=== PATIENT | female | born 1975 | race African-American/Black ===

== ENCOUNTER 2018-06-23 08:17 | Emergency (ER) | payer MEDICARE, MEDICAID ==
[~2018-06-23] VITALS: Ht 172.7 cm; Wt 83.0 kg
[2018-06-23 08:35] VITALS: BP 127/82
--- NOTE | 2018-06-23 08:42 | NUR ---
PT BIB SELF, C/O FEELING HOMICIDAL X 1 DAY REQUESTING PSYCH EVAL , HOMELESS DENIES SUICIDAL - H/O SCHIZO AFFECTIVE ADMITES USING METH X 3 DAYS AGO. VERBALLY RESPONSIVE AND ABLE TO MAKE NEEDS KNOWN. ON ROOM AIR, BREATHING EVENLY AND UNLABORED. DENIES ANY PAIN AT THIS TIME. DR. CORTES AT BEDSIDE FOR EVAL. WILL CONTINUE TO MONITOR ACCORDINGLY.
--- NOTE | 2018-06-23 08:46 | NUR ---
SEEND AND EXAMINED BY DR. CORTES.
--- NOTE | 2018-06-23 08:55 | NUR ---
LABS DRAWNED AND URINE SPECIMEN COLLECTED AND SENT TO LAB.
[2018-06-23 09:03] LABS: BASOPHILS # (AUTO) 0.1 /CMM (0.0-0.2); BASOPHILS % (AUTO) 0.5 % (0.0-2.0); EOSINOPHILS % (AUTO) 0.8 % (0.0-6.0); HEMATOCRIT 37 % (33-45); HEMOGLOBIN 12.2 g/dL (11.5-14.8); LYMPHOCYTES # (AUTO) 2.2 /CMM (0.8-4.8); LYMPHOCYTES % (AUTO) 15.7 % (20.0-44.0); MEAN CORPUSCULAR HGB CONC 33 g/dl (31.0-36.0); MEAN CORPUSCULAR VOLUME 85 fL (82-100); MONOCYTES # (AUTO) 1.2 /CMM (0.1-1.30); MONOCYTES % (AUTO) 8.4 % (2.0-12.0); NEUTROPHILS # (AUTO) 10.6 /CMM (1.8-8.9); NEUTROPHILS % (AUTO) 74.6 % (43.0-81.0); PLATELET COUNT (AUTO) 245 /CMM (150-450); RED BLOOD CELL COUNT(AUTO) 4.35 MIL/uL (4.0-5.2); WHITE BLOOD COUNT (AUTO) 14.1 K/uL (4.3-11.0)
[2018-06-23 09:06] LABS: APPEARANCE,URINE CLOUDY (CLEAR); BILIRUBIN,URINE 1+ (NEGATIVE); BLOOD, URINE 3+ Ery/uL (NEGATIVE); COLOR,URINE YELLOW (YELLOW); KETONES,URINE 3+ (NEGATIVE); LEUKOCYTE ESTERASE ,URINE NEGATIVE (NEGATIVE); NITRITE, URINE NEGATIVE (NEGATIVE); PH,URINE 5.5 (5.0-8.0); PROTEIN,URINE TRACE mg/dl (NEGATIVE); UGLUCOSE NEGATIVE (NEGATIVE); UROBILINOGEN,URINE 0.2 EU/dL (0.2)
[2018-06-23 09:11] LABS: BACTERIA,URINE 1+ /HPF (None Seen); CALCIUM, SERUM 8.5 mg/dL (8.5-10.1); CARBON DIOXIDE 21 mmol/L (21-32); CHLORIDE 105 mmol/L (98-107); CREATININE 0.9 mg/dL (0.6-1.3); GLUCOSE 92 mg/dL (74-106); POTASSIUM 3.6 mmol/L (3.5-5.1); SODIUM SERUM 140 mmol/L (136-145); UREA NITROGEN, BLOOD 24 mg/dL (7-18); WBC,URINE 0-2 /HPF (0-3)
[2018-06-23 09:12] LABS: CALCIUM OXALATE CRYSTALS,UR Many /HPF (None Seen)
[2018-06-23 09:17] LABS: ACETAMINOPHEN 0 ug/ml (10-30); ALANINE AMINOTRANSFERASE 30 U/L (12-78); ALBUMIN 4.1 g/dL (3.4-5.0); ALCOHOL, BLOOD < 3 mg/dL (0-0); ALKALINE PHOSPHATASE 86 U/L (46-116); ASPARTATE AMINOTRANSFERASE 39 U/L (15-37); BILIRUBIN,DIRECT 0.2 mg/dL (0.0-0.2); BILIRUBIN,TOTAL 0.8 mg/dL (0.2-1.0); SALICYLATE 0.3 mg/dL (2.8-20.0); TOTAL PROTEIN, SERUM 7.5 g/dL (6.4-8.2)
--- NOTE | 2018-06-23 09:33 | NUR ---
APPLICATIONS ENGINEER MANUFACTURING AT BEDSIDE FOR EVAL.
--- NOTE | 2018-06-23 09:51 | NUR ---
Mehran gamez in EDM - 06/23/18 at 0955 by ROGER PT BECOME UPSET AFTER TALKING TO PLANNING RN, THEN WALKOUT IN THE ER. DR. CORTES AWARE.
--- NOTE | 2018-06-23 09:55 | NUR ---
PT IS MEDICALLY CLEARED BY ELIAS BUSTAMANTE AND DISCUSSING POSSIBLE FACILITY PLACEMENT, PT BECAME IRATE AND ELOPE. DR CORTES AWARE.
== END 2018-06-23 10:07 | disposition left against medical advice (07) ==
LOC: ER 08:17
DX: F29 Unspecified psychosis not due to a substance or known physiological condition (principal); F15.10 Other stimulant abuse, uncomplicated; F25.9 Schizoaffective disorder, unspecified
CPT/HCPCS: 36415; 80048-TC; 80076-TC; 80305; 81000-TC; 85025-TC; G0480

== ENCOUNTER 2021-05-04 18:42 | Inpatient (IN) | payer MEDICAID, MEDICARE, OTHER ==
[~2021-05-04] VITALS: Ht 162.6 cm; Wt 93.0 kg
--- NOTE | 2021-05-04 18:50 | NUR ---
PT BIB RA881 FOR DIZZINESS S/P TAKING 20 PILLS OF WELBUTRIN XL 300MG 3 HRS AGO. ADMITS FEELING NAUSEA BEFORE. AAOX4, BREATHING EVEN AND UNLABORED. PT ASSISTED TO BED. SEIZURE PRECAUTIONS IN PLACE.
[2021-05-04] MEDS ORDERED: ACTIVATED CHARCOAL 25 GM/120 ML TUBE PO ONE (19:00)
--- NOTE | 2021-05-04 19:01 | NUR ---
COVID SAMPLE OBTAINED AND SENT TO LAB
--- NOTE | 2021-05-04 19:03 | NUR ---
MEMBERSHIP SALES REPRESENTATIVE AT BEDSIDE
--- NOTE | 2021-05-04 19:09 | NUR ---
LAB AT BEDSIDE
--- NOTE | 2021-05-04 19:17 | NUR ---
PT ASSISTED TO BEDPAN
[2021-05-04 19:21] LABS: BASOPHILS # (AUTO) 0.2 K/uL (0.0-0.2); BASOPHILS % (AUTO) 1.5 % (0.0-2.0); EOSINOPHILS % (AUTO) 0.1 % (0.0-6.0); HEMATOCRIT 34 % (33-45); HEMOGLOBIN 11.2 g/dL (11.5-14.8); LYMPHOCYTES # (AUTO) 0.9 K/uL (0.8-4.8); LYMPHOCYTES % (AUTO) 6.4 % (20.0-44.0); MEAN CORPUSCULAR HGB CONC 33 g/dl (31.0-36.0); MEAN CORPUSCULAR VOLUME 83 fL (82-100); MONOCYTES # (AUTO) 0.6 K/uL (0.1-1.30); NEUTROPHILS # (AUTO) 12.5 K/uL (1.8-8.9); PLATELET COUNT (AUTO) 322 K/uL (150-450); RED BLOOD CELL COUNT(AUTO) 4.12 MIL/uL (4.0-5.2); WHITE BLOOD COUNT (AUTO) 14.2 K/uL (4.3-11.0)
[2021-05-04] MEDS ORDERED: ACTIVATED CHARCOAL 25 GM/120 ML TUBE ONE (19:25)
--- NOTE | 2021-05-04 19:32 | NUR ---
RECIEVED REPORT FOR SHAHZAD. PT ON STORE KEEPER W SEIZURE PRECAUTIONS IN PLACE. DENIES ANY SYMPOMS OR PAIN AT THIS TIME AND BREATHING IS EVEN AND UNLABORED. ALL V/S STABLE AT THIS TIME. WILL CONTINUE TO MONITOR.
[2021-05-04 19:36] LABS: ALANINE AMINOTRANSFERASE 29 U/L (12-78); ALBUMIN 3.9 g/dL (3.4-5.0); ALCOHOL, BLOOD < 3 mg/dL (0-0); ALKALINE PHOSPHATASE 79 U/L (46-116); ASPARTATE AMINOTRANSFERASE 25 U/L (15-37); BILIRUBIN,DIRECT 0.1 mg/dL (0.0-0.2); BILIRUBIN,TOTAL 0.3 mg/dL (0.2-1.0); CALCIUM, SERUM 8.9 mg/dL (8.5-10.1); CARBON DIOXIDE 24 mmol/L (21-32); CHLORIDE 105 mmol/L (98-107); CREATININE 0.8 mg/dL (0.6-1.3); GLUCOSE 114 mg/dL (74-106); POTASSIUM 3.5 mmol/L (3.5-5.1); SODIUM SERUM 141 mmol/L (136-145); TOTAL PROTEIN, SERUM 7.1 g/dL (6.4-8.2); UREA NITROGEN, BLOOD 23 mg/dL (7-18)
[2021-05-04 19:38] LABS: ACETAMINOPHEN < 2 ug/ml (10-30)
[2021-05-04] MEDS ORDERED: LORAZEPAM INJ 2 MG/ML VIAL ONE (20:06)
[2021-05-04] MEDS ORDERED: LORAZEPAM INJ 2 MG/ML VIAL IM ONE (20:30)
[2021-05-04 22:43] LABS: BILIRUBIN,URINE Negative (NEGATIVE); COLOR,URINE YELLOW (YELLOW); LEUKOCYTE ESTERASE ,URINE Negative (NEGATIVE); NITRITE, URINE Negative (NEGATIVE); PROTEIN,URINE Negative (NEGATIVE); UGLUCOSE 500 MG/DL mg/dL (NEGATIVE)
[2021-05-04 22:47] LABS: BACTERIA,URINE Rare /HPF (None Seen); RBC,URINE NONE SEEN /HPF (0-2); SQUAMOUS EPITHELIAL CELL,UR Few /HPF (None Seen); WBC,URINE NONE SEEN /HPF (0-3)
--- NOTE | 2021-05-05 01:27 | NUR ---
PT SLEEPING COMOFORTABLY EASILY AROUSABLE BREATHING EVEN AND UNLABORED. PT ON COOK FRUIT WITH SEIZURE PRECAUTIONS IN PLACE V/S STABLE AT THIS TIME. WILL CONTINUE TO MONITOR.
[2021-05-05] MEDS ORDERED: LORAZEPAM INJ 2 MG/ML VIAL ONE ×2 (05:55→11:30)
[2021-05-05] MEDS ORDERED: LORAZEPAM INJ 2 MG/ML VIAL IV ONE ×3 (06:00→17:30)
--- NOTE | 2021-05-05 07:30 | NUR ---
PT SLEEPING COMFORTABLY IN BED, EASILY AROUSABLE, CONNECTED TO MONITOR
--- NOTE | 2021-05-05 08:00 | NUR ---
THE PATIENT IS RECEIVED IN ER BED #11. EASILY RESPONSIVE TO VERBAL STIMULI. IN ROOM AIR RESPIRATION REGULAR AND UNLABORED. THE PATIENT IS IN NO APPARENT DISTRESS. WILL CONTINUE TO MONITOR THE PATIENT.
--- NOTE | 2021-05-05 10:32 | NUR ---
call from rajinder alexis,house sup, unable to give in-patient bed until a 1:1 sitter is available
[2021-05-05 12:56] LABS: BASOPHILS % (AUTO) 0.3 % (0.0-2.0); EOSINOPHILS % (AUTO) 0.1 % (0.0-6.0); HEMATOCRIT 33 % (33-45); HEMOGLOBIN 10.9 g/dL (11.5-14.8); LYMPHOCYTES # (AUTO) 1.2 K/uL (0.8-4.8); LYMPHOCYTES % (AUTO) 10.1 % (20.0-44.0); MEAN CORPUSCULAR HGB CONC 33 g/dl (31.0-36.0); MEAN CORPUSCULAR VOLUME 83 fL (82-100); MONOCYTES # (AUTO) 0.6 K/uL (0.1-1.30); MONOCYTES % (AUTO) 5.2 % (2.0-12.0); NEUTROPHILS % (AUTO) 84.3 % (43.0-81.0); PLATELET COUNT (AUTO) 311 K/uL (150-450); RED BLOOD CELL COUNT(AUTO) 3.99 MIL/uL (4.0-5.2); WHITE BLOOD COUNT (AUTO) 11.9 K/uL (4.3-11.0)
[2021-05-05] MEDS ORDERED: ONDANSETRON HCL/PF 4 MG/2 ML VIAL IVP PRN (13:00)
[2021-05-05] MEDS ORDERED: ACETAMINOPHEN 325 MG TABLET PO PRN (13:00)
[2021-05-05] MEDS ORDERED: ZOLPIDEM TARTRATE 5 MG TABLET PO PRN (13:00)
[2021-05-05] MEDS ORDERED: MAGNESIUM HYDROXIDE 30 ML UDC PO PRN (13:00)
[2021-05-05] MEDS ORDERED: MAG HYDROX/AL HYDROX/SIMETH 30 ML UDC PO PRN (13:00)
[2021-05-05] MEDS ORDERED: Z GUARD REMEDY 2 OZ OINT TP PRN (13:00)
[2021-05-05 13:07] LABS: CALCIUM, SERUM 8.5 mg/dL (8.5-10.1); CREATININE 0.7 mg/dL (0.6-1.3); MAGNESIUM 2.1 mg/dL (1.8-2.4); PHOSPHORUS 2.3 mg/dL (2.5-4.9); POTASSIUM 3.5 mmol/L (3.5-5.1)
[2021-05-05] MEDS: IV NS 0.9% 1,000 ML IV SCH (13:30)
--- NOTE | 2021-05-05 17:14 | NUR ---
DR ABRAHAM IS MADE AWARE THAT THE PATIENT IS AGITATED AND VERY ANXIOUS. RECEIVED AN ORDER FO ATIVAN 1 MG IV ONCE. THE ORDER IS READ BACK, VERIFIED. NOTED AND CARRIED OUT.
--- NOTE | 2021-05-05 17:38 | NUR ---
CALLED PINKY FOR PSYCH EVAL. PINKY WILL COME ROMELIA
--- NOTE | 2021-05-05 18:26 | NUR ---
SPOKE WITH NURSING SUP ABOUT PLAN
--- NOTE | 2021-05-06 00:38 | NUR ---
REPORT GIVEN TO ANDERSON
--- NOTE | 2021-05-06 00:55 | NUR ---
PT TRANSPORTED TO [facility] ON ELASTIC ATTACHER CHAINSTITCH PER ACLS PROTOCOL WITHOUT INCIDENT. ALL V/S STABLE AT TIME OF TRANSFER. ALL BELONGINGS TRANSPORTED WITH PATIENT.
[2021-05-06 01:05] VITALS: BP 142/84
--- NOTE | 2021-05-06 01:05 | NUR ---
RN NOTES; AT 0030 RECEIVE REPORT FROM ER/RN/IRMA THIS PATIENT WAS BROUGHT IN BY PARAMEDICS AND [employer], FROM HOME SHE TOOK 20 PILL OF WELLBUTRIN XR 300 MG ,(POISON CONTROL WAS CONTACTED-SHE RECEIVED CHARCOAL) SHE ALSO INGESTED METHAMPHETAMINE, DENIES SI OR HI,SHE JUST WANT TO KNOW IF HIS BOYFRIEND CARE, KNOWN CASE OF SCHIZO AFFECTIVE,NKDA, SHE WAS ASYMPTOMATIC, EKG-SINUS RHYTHM,LABS WBC-11.9, RAPID TEST(NEGATIVE), NOTED WITH DELIRIUM, KEPT ON MONITORING, SHE RECEIVED ATIVAN TOTAL OF 3 MG, ADMITTING DX:DRUG OVERDOSE, ON ROOM AIR SPO2-95%.
--- NOTE | 2021-05-06 01:10 | NUR ---
RN NOTES: NEW ADMISSION AT 0105,45 Y.O., FEMALE, A/OX1, LOOKS VERY SLEEPY AND DROWSY, AWAKE WHEN HER NAME IS CALLED BUT GO BACK TO SLEEP RIGHT AWAY, LOOKS DISHEVELED, VERY LETHARGIC AND SHE URINATE IN HER UNDERWEAR, SHE IS COLD TO TOUCH, SPO2-98% ON ROOM AIR, UNABLE TO GET HISTORY, SHE LOOKS SO SLEEPY AND FOLLOW SIMPLE COMMAND ONLY, WHEN YOU ASKED QUESTION SHE CANT HARDLY UNDERSTAND, CONFUSED,ORIENTED TO UNIT AND STAFF.NO SIGN OF SPOB, NON LABORED BREATHING, NO SIGN OF PAIN OR DISCOMFORT. FALL,SAFETY AND SEIZURE PRECAUTION OBSERVED. BODY CHECK DONE: 1)LEFT HAND SWELLING, WITH TATTOO, SKIN TEAR AND NEEDLE PRICK NOTED WITH DRY BLOOD 2)RIGHT HAND SWELLING, SKIN TEAR AND NEEDLE PRICK NOTED WITH DRY BLOOD 3)MULTIPLE SKIN DISCOLORATION/OLD HAEMATOMA ON THE RLE 4))MULTIPLE SKIN DISCOLORATION/OLD HAEMATOMA ON THE LLE 5)REDNESS ON THE NECK AREA --WITH 1:1 SITTER FOR CLOSE WATCH, WHEN ASKED IF SHE HAS SUICIDAL ATTEMPT?SHE TURN HER HEAD,MEANS NO,WILL CONTINUE TO MONITOR AND KEPT ON CLOSE WATCH.
--- NOTE | 2021-05-06 01:15 | NUR ---
RN NOTES: -SPONGE BATH RENDERED TO PATIENT, CHANGE ALL HER UNDERGARMENTS, KEPT CLEAN AND COMFORTABLE, WENT BACK TO SLEEP.
[2021-05-06] MEDS: IV NS 0.9% 1,000 ML IV SCH (01:42)
--- NOTE | 2021-05-06 01:43 | NUR ---
RN NOTES: -AFTER SPONGE BATH RENDERED, PATIENT STARTED ON IVF OF NS AT 100 ML/HR VIA INFUSSION PUMP, IV CANNULA ON THE RH G#20.
[2021-05-06] MEDS ORDERED: K PHOS NEUTRAL 250 MG TABLET PO ONE (02:02)
--- NOTE | 2021-05-06 02:02 | NUR ---
RN NOTES: CALLED NAIL PROFESSIONAL PHARMACIST SPOKE WITH HARSHA, NOTIFIED, PATIENT MEDICATION OF NEUTRA PHOS K TAB 250 MG TO GIVE 2 VERD=379 MG, ONCE PATIENT IS TRANSFERRED UP IN THE ROOM NEEDS TO BE VERIFIED, HE SAID WAIT FOR 20 MIN, THEN IT WILL BE RELEASED IN THE PYXIS.
--- NOTE | 2021-05-06 02:20 | NUR ---
RN NOTES: AT 0210 MEDICATION WAS RELEASED IN THE PYXIS, AWAKEN PATIENT SHE LOOKS VERY DROWSY AND SLEEPY, RN HAS TO KEEP HER AWAKE TO BE ABLE TO GIVE HER ORAL MEDS WITH APPLE SAUCE, KEPT UPRIGHT, ASPIRATION PRECAUTION OBSERVED,SHE WAS ABLE TO TAKE IT AND AND FINISHED HER APPLESAUCE, SHE ALSO DRINK SOME WATER, THEN GET BACK TO SLEEP.
[2021-05-06 04:00] VITALS: BP 126/81
--- NOTE | 2021-05-06 04:16 | NUR ---
RN NOTES: -AWAKE SHE WANTS TO GO TO THE BATHROOM BUT SHE STILL FEELING DIZZY, EXPLAINED TO HER FOR SAFETY AND SHE IS HIGH RISK FOR FALL ,OFFERED TO USE BED PADILLA, SHE UNDERSTAND SHE COOPERATE TO USE IT.
--- NOTE | 2021-05-06 07:47 | NUR ---
RN NOTES: ASLEEP MOST OF THE TIME, NO LABS THIS MORNING, REMAIN IN SINUS RHYTHM=81, STABLE, NO SEIZURE, NO DELIRIUM NOTED, NO TREMORS, ON CLOSE WATCH, ENDORSED FOR CONTINUITY OF CARE.
[2021-05-06] MEDS ORDERED: LORAZEPAM INJ 2 MG/ML VIAL IVP ONE (08:04)
--- NOTE | 2021-05-06 08:11 | NUR ---
RN OPENING NOTES PT RESTING IN BED, SITTER IN ROOM, ON ROOM AIR, NO SOB, NO RR DISTRESS, ON EXTERNAL TELE MONITOR READING SR 74, NS 0.9 RUNNING AT 100 ML/ HR, IV ACCESS ON RIGHT HAND, INTACT AND PATENT. SAFETY PRECAUTIONS METS, BED IN LOWEST AND LOCKED POSITION, CALL LIGHT WITHIN REACH AND SIDE RAIL X2.
--- NOTE | 2021-05-06 15:00 | NUR ---
PT DISCHARGE NOTE PT IS A/OX4, NO SOB, NO RR DISTRESS, ON ROOM AIR, ABLE TO FOLLOW DIRECTIONS, ABLE TO AMBULATE WITH STEADY GAIT, GIVEN DISCHARGE INSTRUCTIONS TO FOLLOW UP WITH PCP, VERBALIZE UNDERSTANDING, DISCHARGE PAPERS SIGNED, IV ACCESS DISCONTINUED, BELONGINGS CHECKED, BUS PASS PROVIDED DUE NO AVAILABILITY FOR MANAGER RISK MANAGEMENT, SITTER ESCORTED TO THE LOBBY VIA WHEELCHAIR.
--- NOTE | 2021-05-08 14:35 | NUR ---
SS consult: Drug Overdose SW attempted to see pt. for interview. Pt. was departed from hospital. SW was unable to see pt.
== END 2021-05-06 15:20 | disposition home or self-care (01) | DRG 918 ==
LOC: ER 18:56 → TELE 05-06 00:49
PROVIDERS: ADMIT Family Medicine; ATTEND Family Medicine
DX: T43.292A Poisoning by other antidepressants, intentional self-harm, initial encounter (principal); Y92.9 Unspecified place or not applicable; F25.9 Schizoaffective disorder, unspecified; Z20.822 Contact with and (suspected) exposure to COVID-19; F15.90 Other stimulant use, unspecified, uncomplicated; T43.622A Poisoning by amphetamines, intentional self-harm, initial encounter; D72.829 Elevated white blood cell count, unspecified; R79.89 Other specified abnormal findings of blood chemistry; E86.9 Volume depletion, unspecified
CPT/HCPCS: 36415; 80048-TC; 80076-TC; 81001; 82962-TC; 83735-TC; 84100-TC; 84703-TC; 85025-TC; 87081-TC; C9803; G0378; G0480; J2060; J7030

== ENCOUNTER 2021-07-09 01:08 | Emergency (ER) | payer OTHER ==
[~2021-07-09] VITALS: Ht 172.7 cm; Wt 89.8 kg
--- NOTE | 2021-07-09 01:35 | NUR ---
PT SHEY C/O +SI WITH PLAN RUN INTO TRAFFIC, VOL PSYH ADMIT. PT A/OX3. TOLERATING R/A WELL WITH NO SOB. SAFETY 1:[address] BELONGINGS PLACED IN LOCKER. WILL CONTINUE TO REASSESS PT.
--- NOTE | 2021-07-09 01:47 | NUR ---
URINE COLLECTED AND SENT TO LAB
--- NOTE | 2021-07-09 01:52 | NUR ---
HANDS PARTER AT PT'S BEDSIDE
[2021-07-09 02:34] LABS: ALANINE AMINOTRANSFERASE 27 U/L (12-78); ALBUMIN 4.3 g/dL (3.4-5.0); ALCOHOL, BLOOD < 3 mg/dL (0-0); ALKALINE PHOSPHATASE 74 U/L (46-116); ASPARTATE AMINOTRANSFERASE 21 U/L (15-37); BILIRUBIN,DIRECT 0.2 mg/dL (0.0-0.2); BILIRUBIN,TOTAL 0.7 mg/dL (0.2-1.0); CALCIUM, SERUM 9.1 mg/dL (8.5-10.1); CARBON DIOXIDE 29 mmol/L (21-32); CHLORIDE 104 mmol/L (98-107); CREATININE 0.9 mg/dL (0.6-1.3); GLUCOSE 116 mg/dL (74-106); POTASSIUM 3.5 mmol/L (3.5-5.1); SODIUM SERUM 142 mmol/L (136-145); TOTAL PROTEIN, SERUM 7.7 g/dL (6.4-8.2); UREA NITROGEN, BLOOD 23 mg/dL (7-18)
[2021-07-09 02:39] LABS: ACETAMINOPHEN 0 ug/ml (10-30)
[2021-07-09 03:08] LABS: BASOPHILS % (AUTO) 0.5 % (0.0-2.0); EOSINOPHILS % (AUTO) 1.1 % (0.0-6.0); HEMATOCRIT 36 % (33-45); HEMOGLOBIN 11.8 g/dL (11.5-14.8); LYMPHOCYTES # (AUTO) 3.6 K/uL (0.8-4.8); LYMPHOCYTES % (AUTO) 42.3 % (20.0-44.0); MEAN CORPUSCULAR HGB CONC 33 g/dl (31.0-36.0); MEAN CORPUSCULAR VOLUME 85 fL (82-100); MONOCYTES # (AUTO) 0.9 K/uL (0.1-1.30); MONOCYTES % (AUTO) 10.6 % (2.0-12.0); NEUTROPHILS # (AUTO) 3.8 K/uL (1.8-8.9); NEUTROPHILS % (AUTO) 45.5 % (43.0-81.0); PLATELET COUNT (AUTO) 315 K/uL (150-450); RED BLOOD CELL COUNT(AUTO) 4.25 MIL/uL (4.0-5.2); WHITE BLOOD COUNT (AUTO) 8.5 K/uL (4.3-11.0)
[2021-07-09 03:24] LABS: BILIRUBIN,URINE NEGATIVE (NEGATIVE); COLOR,URINE YELLOW (YELLOW); LEUKOCYTE ESTERASE ,URINE NEGATIVE (NEGATIVE); NITRITE, URINE NEGATIVE (NEGATIVE); PH,URINE 5.5 (5.0-8.0); PROTEIN,URINE NEGATIVE (NEGATIVE); UGLUCOSE NEGATIVE (NEGATIVE); UROBILINOGEN,URINE 0.2 EU/dL (0.2)
--- NOTE | 2021-07-09 04:13 | NUR ---
PT SLEEPING IN BED; COOPERATIVE WITH CARE. PT IN NO ACUTE DISTRESS AT THIS TIME. WILL CONTINUE SAFETY PROTOCOL.
--- NOTE | 2021-07-09 04:26 | NUR ---
FACESHEET AND CLINICALS FAXED TO [facility].
--- NOTE | 2021-07-09 07:50 | NUR ---
pt stated she is not suicidal and wants to be discharged home. dr spence aware.
--- NOTE | 2021-07-09 08:02 | NUR ---
Patient discharged to home in stable condition. Written and verbal after care instructions given. Patient verbalizes understanding of instruction.
[2021-07-09 08:05] VITALS: BP 113/54
[2021-07-09 10:32] LABS: RBC,URINE 0-3 /HPF (0-2); WBC,URINE 0-2 /HPF (0-3)
[2021-07-09 10:33] LABS: BACTERIA,URINE Few /HPF (None Seen); SQUAMOUS EPITHELIAL CELL,UR Few /HPF (None Seen)
[2021-07-09 10:34] LABS: URINE AMORPHOUS URATE Few /HPF (None Seen)
== END 2021-07-09 08:05 | disposition home or self-care (01) ==
LOC: ER 01:23
DX: R45.851 Suicidal ideations (principal); F25.9 Schizoaffective disorder, unspecified; F15.90 Other stimulant use, unspecified, uncomplicated; Z20.822 Contact with and (suspected) exposure to COVID-19; Z53.29 Procedure and treatment not carried out because of patient's decision for other reasons
CPT/HCPCS: 36415; 80048; 80076; 80143; 80307; 80320; 81001; 84703; 85025; 87426; 99285; C9803; G0480

== ENCOUNTER 2021-12-16 19:45 | Emergency (ER) | payer OTHER ==
[~2021-12-16] VITALS: Ht 162.6 cm; Wt 86.2 kg
--- NOTE | 2021-12-16 20:32 | NUR ---
Patient discharged to RETIREMENT in stable condition. Written and verbal after care instructions given. Patient verbalizes understanding of instruction.
[2021-12-16 20:33] VITALS: BP 130/81
== END 2021-12-16 20:33 ==
LOC: ER 19:54
DX: R45.851 Suicidal ideations (principal); F32.A Depression, unspecified; Z60.2 Problems related to living alone

== ENCOUNTER 2022-01-26 20:53 | Inpatient (IN) | payer OTHER ==
[~2022-01-26] VITALS: Ht 172.7 cm; Wt 85.3 kg
--- NOTE | 2022-01-26 21:21 | NUR ---
SP/ANIKET FROM HOME FOR S/I. TOOK 60 PILLS OF GEODON 80MG PILLS AT 8PM. PATIENT ALERT AND ORIENTED X3. ONLY C/O " FEELING FATIGUED". PATIENT IN BED 15 BELONGINGS TAKEN AWAY AND PLACED IN LOCKER. SITTER AT BEDSIDE PATIENT ON MONITOR AND POX AND WAS SEEN BY PA AT TRIAGE.
--- NOTE | 2022-01-26 21:28 | NUR ---
PER [facility] POSION CONTROL MONITOR FOR 6-8HRS BASIC LABS, KEEP K+ > 4 MONITOR MAG LEVELS EKG QTC < 500
--- NOTE | 2022-01-26 21:41 | NUR ---
COVID SWAB COLLECTED SENT TO LAB
--- NOTE | 2022-01-26 21:43 | NUR ---
URINE COLLECTED AND SENT TO LAB
--- NOTE | 2022-01-26 21:43 | NUR ---
20G IV LINE ESTABLISHED AT . BLOOD DRAWN AND SENT TO LAB
[2022-01-26 21:47] LABS: BASOPHILS % (AUTO) 0.7 % (0.0-2.0); EOSINOPHILS % (AUTO) 0.9 % (0.0-6.0); HEMATOCRIT 35 % (33-45); HEMOGLOBIN 11.6 g/dL (11.5-14.8); LYMPHOCYTES # (AUTO) 1.2 K/uL (0.8-4.8); LYMPHOCYTES % (AUTO) 19.8 % (20.0-44.0); MEAN CORPUSCULAR HGB CONC 33 g/dl (31.0-36.0); MEAN CORPUSCULAR VOLUME 83 fL (82-100); MONOCYTES # (AUTO) 0.5 K/uL (0.1-1.30); NEUTROPHILS # (AUTO) 4.2 K/uL (1.8-8.9); NEUTROPHILS % (AUTO) 69.6 % (43.0-81.0); PLATELET COUNT (AUTO) 307 K/uL (150-450)
[2022-01-26 22:04] LABS: BILIRUBIN,URINE NEGATIVE (NEGATIVE); COLOR,URINE YELLOW (YELLOW); LEUKOCYTE ESTERASE ,URINE NEGATIVE (NEGATIVE); NITRITE, URINE NEGATIVE (NEGATIVE); PROTEIN,URINE TRACE mg/dl (NEGATIVE); UGLUCOSE NEGATIVE (NEGATIVE)
[2022-01-26 22:10] LABS: BACTERIA,URINE 1+ /HPF (None Seen); RBC,URINE 21-50 /HPF (0-2); WBC,URINE 0-2 /HPF (0-3)
--- NOTE | 2022-01-26 22:15 | NUR ---
RECEIVED CALL FROM ALBA NG PROVIDED VERBAL CLINICALS
[2022-01-26 22:20] LABS: ALANINE AMINOTRANSFERASE 38 U/L (12-78); ALBUMIN 3.5 g/dL (3.4-5.0); ALKALINE PHOSPHATASE 89 U/L (46-116); ASPARTATE AMINOTRANSFERASE 32 U/L (15-37); BILIRUBIN,DIRECT 0.1 mg/dL (0.0-0.2); BILIRUBIN,TOTAL 0.2 mg/dL (0.2-1.0); CALCIUM, SERUM 8.3 mg/dL (8.5-10.1); CARBON DIOXIDE 27 mmol/L (21-32); CHLORIDE 104 mmol/L (98-107); GLUCOSE 114 mg/dL (74-106); POTASSIUM 3.3 mmol/L (3.5-5.1); SODIUM SERUM 141 mmol/L (136-145); TOTAL PROTEIN, SERUM 6.7 g/dL (6.4-8.2); UREA NITROGEN, BLOOD 18 mg/dL (7-18)
[2022-01-26 22:22] LABS: ACETAMINOPHEN < 10 ug/ml (10-30); ALCOHOL, BLOOD < 3 mg/dL (0-0)
[2022-01-26] MEDS ORDERED: HYDROCODONE/APAP 5/325MG TABLET PO PRN (22:30)
[2022-01-26] MEDS ORDERED: LORAZEPAM INJ 2 MG/ML VIAL IV PRN (22:30)
[2022-01-26] MEDS ORDERED: MORPHINE SULFATE INJ 2 MG/ML DISP.SYRIN IV PRN (22:30)
[2022-01-26] MEDS ORDERED: IV NS 0.9% 1,000 ML BAG IV ONE (22:30)
[2022-01-26] MEDS ORDERED: Z GUARD REMEDY 4 OZ OINT TP PRN (22:30)
[2022-01-26] MEDS ORDERED: MAG HYDROX/AL HYDROX/SIMETH 30 ML UDC PO PRN (22:30)
[2022-01-26] MEDS ORDERED: ONDANSETRON HCL/PF 4 MG/2 ML VIAL IVP PRN (22:30)
[2022-01-26] MEDS ORDERED: MAGNESIUM HYDROXIDE 30 ML UDC PO PRN (22:30)
[2022-01-27] VITALS (14 sets, daily range): BP systolic 120–140; BP diastolic 51–96
--- NOTE | 2022-01-27 00:55 | NUR ---
PT IS SLEEPING, EASILY AROUSABLE WITH VERBAL STIMULI. CONNECTED TO MONITOR, VSS. WILL CONTINUE TO MONITOR.
--- NOTE | 2022-01-27 03:07 | NUR ---
PT AMBULATED TO BATHROOM, STEADY GAIT NOTED
[2022-01-27] MEDS ORDERED: POTASSIUM CL. PREMIX PERIPHER. 50 ML ONE ×2 (03:11→04:20)
[2022-01-27] MEDS: POTASSIUM CL. PREMIX PERIPHER. 50 ML IV SCH ×4 (03:25→06:40)
--- NOTE | 2022-01-27 04:25 | NUR ---
LAB AT BEDSIDE
[2022-01-27 04:41] LABS: BASOPHILS % (AUTO) 0.7 % (0.0-2.0); EOSINOPHILS % (AUTO) 2.3 % (0.0-6.0); HEMATOCRIT 35 % (33-45); HEMOGLOBIN 11.4 g/dL (11.5-14.8); LYMPHOCYTES # (AUTO) 1.9 K/uL (0.8-4.8); LYMPHOCYTES % (AUTO) 30.4 % (20.0-44.0); MEAN CORPUSCULAR HGB CONC 33 g/dl (31.0-36.0); MEAN CORPUSCULAR VOLUME 84 fL (82-100); MONOCYTES # (AUTO) 0.7 K/uL (0.1-1.30); MONOCYTES % (AUTO) 11.8 % (2.0-12.0); NEUTROPHILS # (AUTO) 3.4 K/uL (1.8-8.9); NEUTROPHILS % (AUTO) 54.8 % (43.0-81.0); PLATELET COUNT (AUTO) 303 K/uL (150-450); RED BLOOD CELL COUNT(AUTO) 4.12 MIL/uL (4.0-5.2); WHITE BLOOD COUNT (AUTO) 6.3 K/uL (4.3-11.0)
[2022-01-27 05:10] LABS: ALBUMIN 3.3 g/dL (3.4-5.0); BILIRUBIN,DIRECT 0.1 mg/dL (0.0-0.2); BILIRUBIN,TOTAL 0.3 mg/dL (0.2-1.0); CREATININE 0.9 mg/dL (0.6-1.3); MAGNESIUM 2.2 mg/dL (1.8-2.4); PHOSPHORUS 3.7 mg/dL (2.5-4.9); POTASSIUM 3.6 mmol/L (3.5-5.1); TOTAL PROTEIN, SERUM 6.3 g/dL (6.4-8.2)
[2022-01-27] MEDS ORDERED: MAG HYDROX/AL HYDROX/SIMETH 30 ML UDC ONE (06:02)
[2022-01-27] MEDS ORDERED: POTASSIUM CL. PREMIX PERIPHER. 100 ML ONE (06:55)
--- NOTE | 2022-01-27 07:41 | NUR ---
GOING TO ICU 257
--- NOTE | 2022-01-27 07:56 | NUR ---
PT REPORT GIVEN TO CHANA DUKES
[2022-01-27] MEDS ORDERED: OMEP20TA5 PO (08:05)
[2022-01-27] MEDS ORDERED: ZIPR80CA2 PO (08:05)
[2022-01-27] MEDS ORDERED: ARIP5TAB10 PO (08:05)
[2022-01-27] MEDS ORDERED: FLUO40CA49 PO (08:05)
[2022-01-27] MEDS ORDERED: BUPR-319 PO (08:05)
--- NOTE | 2022-01-27 09:00 | NUR ---
PT TRANSFERRED TO 257 VIA [facility] ACLS PROTOCOL. WARM HANDOFF GIVEN TO CHANA DUKES.
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
[2022-01-27] MEDS: IV NS 0.9% 1,000 ML IV PRN ×2 (09:21→17:06)
[2022-01-27] MEDS: PANTOPRAZOLE 40 MG TABLET.DR PO SCH (09:50)
--- NOTE | 2022-01-27 10:30 | NUR ---
DRAFTER HEATING AND VENTILATING NOTE: PT.'S CHART SHOWS THAT PT. IS ON 5150 HOLD SINCE 01/26/22. HOLD DONE BY [employer] OFFICER. WILL LET MD KNOW.
--- NOTE | 2022-01-27 11:46 | NUR ---
DISTRIBUTION ANALYST NOTE: DR. RUDOLPH AT BEDSIDE FOR PSYCH CONSULT.
--- NOTE | 2022-01-27 19:19 | NUR ---
MACHINE SHOP SUPERVISOR CLOSING NOTE: PT. REMAINS IN BED, SLEEPING, A/O X 3-4, ABLE TO VERBALIZE NEEDS. NO COMPLAINTS OF PAIN/DISCOMFORT AT THIS TIME. PSYCH THERAPIST READS NSR AT THIS TIME WITH HR OF 70 BPM. VS HAS BEEN STABLE THROUGHOUT THE SHIFT, AFEBRILE. PT. USES BEDSIDE COMMODE TO VOID WITH TOTAL OUTPUT OF 2,100 ML THE ENTIRE SHIFT. NO BM THIS SHIFT. IV SITE ON LEFT FOREARM #20G, PATENT WITH NS RUNNING @ 125 ML/HR. IV SITE DRESSING C/D/I WITH NO S/S OF INFILTRATION. ON 1:1 CONTINUOUS OBSERVATION FOR SUICIDAL IDEATION. PT. ON 5150 HOLD. SAFETY MEASURES MAINTAINED: BED IN LOWEST AND LOCKED POSITION, HOB ELEVATED AT 30 DEGREES, BED ALARM ON, CALL LIGHT AND BELONGINGS WITHIN EASY REACH. WILL ENDORSE CONTINUITY OF CARE TO FLOOR DIRECTOR RN.
[2022-01-28 07:31] LABS: BASOPHILS % (AUTO) 0.4 % (0.0-2.0); EOSINOPHILS % (AUTO) 1.6 % (0.0-6.0); HEMATOCRIT 37 % (33-45); HEMOGLOBIN 11.8 g/dL (11.5-14.8); LYMPHOCYTES # (AUTO) 1.7 K/uL (0.8-4.8); LYMPHOCYTES % (AUTO) 25.3 % (20.0-44.0); MEAN CORPUSCULAR HGB CONC 32 g/dl (31.0-36.0); MEAN CORPUSCULAR VOLUME 84 fL (82-100); MONOCYTES # (AUTO) 0.7 K/uL (0.1-1.30); MONOCYTES % (AUTO) 9.8 % (2.0-12.0); NEUTROPHILS # (AUTO) 4.3 K/uL (1.8-8.9); NEUTROPHILS % (AUTO) 62.9 % (43.0-81.0); PLATELET COUNT (AUTO) 312 K/uL (150-450); RED BLOOD CELL COUNT(AUTO) 4.36 MIL/uL (4.0-5.2); WHITE BLOOD COUNT (AUTO) 6.8 K/uL (4.3-11.0)
--- NOTE | 2022-01-28 07:43 | NUR ---
MS RN OPENING NOTE Patient in bed, asleep. A/O x 3. On room air, breathing evenly and unlabored. No SOB or s/s of distress noted. IV access on LFA #20 infusing NS at 125 ml/hr. On 1:1 observation. Safety precautions in place: bed in low, locked position; siderails up x 2; call light within reach. Will continue to monitor.
[2022-01-28 07:49] LABS: CALCIUM, SERUM 8.5 mg/dL (8.5-10.1); CREATININE 0.8 mg/dL (0.6-1.3); PHOSPHORUS 2.9 mg/dL (2.5-4.9); POTASSIUM 3.9 mmol/L (3.5-5.1)
[2022-01-28 07:59] VITALS: BP 126/74
[2022-01-28] MEDS: PANTOPRAZOLE 40 MG TABLET.DR PO SCH (08:10)
[2022-01-28] MEDS: IV NS 0.9% 1,000 ML IV PRN ×2 (10:01→17:32)
[2022-01-28] MEDS: ACETAMINOPHEN 325 MG TABLET PO PRN (13:58)
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
--- NOTE | 2022-01-28 13:58 | NUR ---
RN NOTE Patient complained of headache and pain on her eyes. PRN Tylenol 650 mg given.
[2022-01-28 16:00] VITALS: BP 119/80
--- NOTE | 2022-01-28 18:53 | NUR ---
MS RN CLOSING NOTE Patient in bed, resting. A/O x 3, able to make needs known. Stable on room air, breathing evenly and unlabored. No SOB or s/s of distress noted. IV access on LFA #20 infusing NS at 125 ml/hr. On 1:1 observation. All needs attended to. due meds given. Safety precautions in place: bed in low, locked position; siderails up x 2; call light within reach. Will endorse to operations supervisor 2nd shift nurse for SHAHZAD.
[2022-01-28] MEDS: ALPRAZOLAM 0.25 MG TABLET PO PRN (19:14)
--- NOTE | 2022-01-28 19:35 | NUR ---
MS RN OPENING NOTE Received Patient in bed, asleep. A/O x 3. On room air, breathing evenly and unlabored. No SOB or s/s of distress noted. IV access on LFA #20 infusing NS at 125 ml/hr. On 1:1 observation. No behavior episode noted at this time, Patient is calm/relaxed. Able to ambulate to the bathroom by herself. Safety precautions in place: bed in low, locked position; side rails up x 2; call light within reach. Will continue to monitor.
--- NOTE | 2022-01-28 22:10 | NUR ---
RN NOTE PATIENT WENT TO THE RESTROOM, APPROACHED THE PATIENT TO DO SKIN ASSESSMENT AND TAKE PICTURES ONCE PATIENT WAS BACK IN BED BUT PATIENT REFUSED X 3 DESPITE OF RISKS AND BENEFITS EXPLANATIONS. PATIENT STATED," I AM TIRED, I WANT TO REST, MY BE LATER." PATIENT CONTINUED TO REFUSE SKIN ASSESSMENT AND WENT BACK TO SLEEP.
[2022-01-29] MEDS: IV NS 0.9% 1,000 ML IV PRN (01:54)
--- NOTE | 2022-01-29 06:41 | NUR ---
RN CLOSING NOTE PATIENT SLEPT WELL AT NIGHT, NO ACUTE CHANGES NOTED. NO C/O PAIN VERBALIZED. CALM AND COOPERATIVE THROUGH OUT THE NIGHT. AMBULATORY TO THE RESTROOM INDEPENDENTLY. IVF RUNNING TO LFA # 20 ORDERED, INTACT/PATENT. SITTER AT BED SIDE FOR CLOSE OBSERVATION. WILL ENDORSE TO AM RN FOR CONTINUITY OF CARE.
[2022-01-29 07:00] LABS: CALCIUM, SERUM 8.7 mg/dL (8.5-10.1); CREATININE 0.8 mg/dL (0.6-1.3); PHOSPHORUS 3.2 mg/dL (2.5-4.9); POTASSIUM 3.9 mmol/L (3.5-5.1)
[2022-01-29 07:05] LABS: BASOPHILS % (AUTO) 0.4 % (0.0-2.0); EOSINOPHILS % (AUTO) 1.8 % (0.0-6.0); HEMATOCRIT 37 % (33-45); HEMOGLOBIN 12.2 g/dL (11.5-14.8); LYMPHOCYTES # (AUTO) 1.7 K/uL (0.8-4.8); LYMPHOCYTES % (AUTO) 22.3 % (20.0-44.0); MEAN CORPUSCULAR HGB CONC 33 g/dl (31.0-36.0); MEAN CORPUSCULAR VOLUME 83 fL (82-100); MONOCYTES # (AUTO) 0.8 K/uL (0.1-1.30); MONOCYTES % (AUTO) 10.8 % (2.0-12.0); NEUTROPHILS # (AUTO) 4.9 K/uL (1.8-8.9); NEUTROPHILS % (AUTO) 64.7 % (43.0-81.0); PLATELET COUNT (AUTO) 322 K/uL (150-450); RED BLOOD CELL COUNT(AUTO) 4.47 MIL/uL (4.0-5.2); WHITE BLOOD COUNT (AUTO) 7.6 K/uL (4.3-11.0)
--- NOTE | 2022-01-29 07:35 | NUR ---
MS RN OPENING NOTES RECEIVED PATIENT ON BED AWAKE , VERBALLY RESPONSIVE , A/0X 3 , ROOM AIR AND NO SOB OR DISTRESS NOTED , WITH 1:1 OBSERVATION AND ON HOLD FOR 5150 TIL 01/2922 TIL 2130 , NO BEHAVIOR NOTED AT THIS TIME , NO C/O OF PAIN AND DISCOMFORT , NO SUICIDAL IDEATION NOTED , IV SITE ON LFA #20 G WITH NS @125 ML /HR , PATIENT IS COOPERATIVE , WILL CONTINUE TO MONITOR
[2022-01-29] MEDS: PANTOPRAZOLE 40 MG TABLET.DR PO SCH (07:57)
--- NOTE | 2022-01-29 09:14 | NUR ---
RT STAT EKG DONE PAST SCHEDULED TIME. BUSY WITH FIRST ROUNDS, AND WAS NOT CALLED OR NOTIFIED ABOUT EKG ORDER. EKG DONE BY MAJO CH AND PINKY CH.
--- NOTE | 2022-01-29 10:06 | NUR ---
note: RAINE and Psychiatrist, Dr. Elizabeth met with pt. at bedside. The pt. is a 46 year old female on a 5150 hold for danger to self after taking about 60 pills of Geodon as a suicide attempt. The pt. is currently alert & oriented x 4 and makes good eye contact. The pt. is restless, anxious & cooperative throughout interview. The pt. has elevated mood & affect. The pt. states she OD due to "her eye situation". The pt. has left eye redness. Per hold, the pt. took 60 pills of Ziprasidone as a suicide attempt as she is tired of arguing with her partner. Pt. stated she sees a psychiatrist via telemedicine through [facility]. pt. could not recall name of psychiatrist. Pt. states she is compliant with medication. The pt. is agreeable to voluntary placement at a psych hospital. RAINE faxed clinicals to [employer] TEL:[phone] fax:[phone] for voluntary admission to [facility] [[address] [place] [address] FAX:[phone]. RAINE explored pt.'s drug and alcohol use. The pt. also tested positive for Methamphetamine. Per pt. she uses Meth once every 2 weeks and pt. denies any other drug or alcohol use. SW provided motivational interviewing and provided psychoeducation on effects of drug dependence. The pt. expressed understanding and pt. is agreeable to drug rehab. RAINE will refer pt. The pt. stated her support system is her son, Eric Sitting [phone]. The pt. states she received food stamps, SSDI. Per pt. she is ambulatory and independent with all her ADL's. DC Plan: The pt. states she currently resides at home [[address] [place] [address]; [phone]]with her partner, Asher. The pt. is agreeable to voluntary psych placement. RAINE faxed clinicals to [employer] TEL:[phone] fax:[phone] for voluntary admission to [facility] [[address] [place], [place] [id number] FAX:[phone]. SW will follow up as needed. SW provided pt. with mental health and addiction resources and pt. accepted them: ADDICTION RESOURCES For Drugs and Alcohol [facility] sober living Referrals For Rehabilitation once sober Address:[address] [place] [address] [facility] Rehabilitation Program [address] [place] [address] Detox/residential [facility] Substance Abuse Helpline ([facility]) Outpatient, residential treatment, recovery support for youth/adults [facility] www.Ocean Butterflies [facility] [place] Teen programs for drug/alcohol education and support Zina [facility] [place]. Program for adults, sliding scale provides support and education [employer] www.Workiva.[facility] [place]; Detox/residential treatment programs; transition to sober living [facility] www.cri-help.org [place]; Outpatient and residential treatment programs; transition to sober living [facility] TEL: [phone] [facility] Drug Abuse Recovery Baljit Yoder; Outpatient education and supportive programs for teens and adults [place] [facility] www.[facility]asis[facility]ensrec[facility] hospital[facility].org [place]; Residential treatment and work program for females only [facility] www.[facility] center[facility].org [place]: Outpatient/residential treatment program for teens and young adults [facility] [place] www.[facility].org [place] Detox, inpatient, outpatient for adults and youth [facility] [place]; Outpatient programs and referrals to community residential programs. Alcoholics Anonymous -sfV information and meeting and scheduleswww.aa-intergroup.org [place] https://al-anon.org/ [place] support groups for family of alcoholics. Marijuana Anonymous www.madistrict6.org -SFV listing of meetings Narcotics Anonymous www.na.org SOBER LIVING RESOURCES [facility] www.soberhousing.[employer] A non-profit agency that provides resources to recovery and sober living homes throughout [place], [place], [facility] Mens Sober Living Homes: A Work in Progress, [facility] [place] [facility], [facility] Womens Sober Living Homes: [facility] [phone], [place] [facility] Coed Sober Living Homes: [facility] Counseling--Outpatient [facility] [place] [address] [facility] [place] [address] (Specializes in in-depth psychotherapy for emotional distress: anxiety, depression, interpersonal conflicts, life transitions, childhood abuse) [facility] [address] [place] [address] (Assist with solving problem marital difficulties, separation & divorce, aging parents, & grief, chronic & terminal illness) [facility] [address] [place] [address] (Deal with loss & grief, anxiety, marital difficulties) Homebound/Mental Health Services [address] [place] [address] (Provide in-home mental services to people who are incapable of leaving their homes) [facility] for Needs of the Elderly Senior Service/Resource Center [address] [place], [place] [id number] [facility] [address] [place] [address] Mental Health Services Surekha Mireles [address] [place] [address] Services: Outpatient therapy for children, teens, young adults, adults, older adults, and families; Psychiatric services, medication support Psychiatric Outpatient Services [facility] Partial Hospitalization and Intensive Outpatient Program (Managed Care and [place] Only)[address] [facility] [phone] [facility] Partial Hospitalization and Outpatient [address] [place], [place] [phone] [facility] Mental Health [place] [address] [facility] [address] [place], [place] [phone] [facility] Partial Hospitalization and Outpatient [address] [place], [phone] Crisis and Hotline Telephone Numbers 24-Hour service unless stated [place] Crisis Hotlines: turntable.fm [facility] Mental Health/Crisis Line........[phone] Suicide Prevention Center (24 Hours).......[phone] Suicide Prevention Crisis Center.......[phone] (24 Hours) Assaults Against Women Hotline.........197.466.1254 (24 Hours -- [facility]) Women and Children Crisis Correction...........[phone] (24 Hours) Child Abuse Hotline............322.695.6994 [facility] Rape Treatment Center (24 Hours)..........[phone] Alcoholics Anonymous (24 Hours)..........[phone] Cocaine Anonymous (24 Hours)............[phone] Narcotics Anonymous (24 Hours)..........[phone] [address] [facility] [address], [place] [address]
[2022-01-29] MEDS: ALPRAZOLAM 0.25 MG TABLET PO PRN (12:54)
[2022-01-29] MEDS: ACETAMINOPHEN 325 MG TABLET PO PRN (12:54)
--- NOTE | 2022-01-29 14:56 | NUR ---
RAINE received call from [employer] TEL:[phone] and per her request, RAINE faxedMedical Clearance note and test result to fax:[phone]. RAINE will follow up as needed.
--- NOTE | 2022-01-29 16:56 | NUR ---
SW received call from [employer] [facility] TEL:[phone] stating that the pt. has been clinically accepted to [facility] and that the Order stating that the hold has been broken should be faxed to them at fax:[phone]. [facility] TEL:[phone] to provide acceptance information to nurse and state wether [facility] will provide transport or Tech to arrange transport.
--- NOTE | 2022-01-29 19:45 | NUR ---
MS RN NOTES RECEIVED CALM AND QUIET ON BED,NO VIOLENT BEHAVIOR NOTED,FOLLOWS INSTRUCTION AND DIRECTION..FOR DISCHARGE TO [facility],NO HOLD,REPORT GIVEN TO ESPERANZA BY ARASH ZAYAS,AWAITING TO BE JORDAN MAN BY AMBULANCE FOR TRANSPORT.CALL LIGHT IN REAC,NEEDS ANTICIPATED.
--- NOTE | 2022-01-29 19:54 | NUR ---
RN NOTES PATIENT IS WITH ORDER FOR DISCHARGE TO [facility] PER DR RUDOLPH , NO BEHAVIOR NOTED ,WAS ON 1;1 OBSERVATION AND PATIENT WAS COMPLIANT WITH CARE CANCELLED 5150 HOLD AND PATIENT CAN BE DISCHARGED TO [facility] FOR FURTHER TREATMENT , D/C PAPERS WERE PREPARED AND D/C INSTRUCTION PROVIDED , ALL BELONGING AND VALUABLES IS WITH THE PATIENT AND SIGNED THE FORM , REPORT WAS GVIEN TO ESPERANZA FROM [facility] AND STILL WAITING FOR THE COVID RAPID ANTIGEN TEST ENDORSED TO HEALTH CARE COACH NURSE , TO CALL [facility] ONCE COVID RESULT WILL COME OUT
--- NOTE | 2022-01-29 20:00 | NUR ---
MS RN NOTES ON BED SLEEPING,AROUSABLE TO VERBAL STIMULI,CALM AND QUIET,FOLLOW INSTRUCTION,AWAITING TRANSPORT,GOING TO [facility].NO HOLD ORDERED BY DR RUDOLPH,RE DIRECTABLE.
[2022-01-29 20:45] VITALS: BP 128/76
--- NOTE | 2022-01-29 21:37 | NUR ---
MS RN NOTES FILM MAKER BY AMBULANCE FOR TRANSPORT TO [facility],IN STABLE CONDITION
== END 2022-01-29 21:37 | DRG 918 ==
LOC: ER 20:59 → TRANSITION 01-27 02:27 → ICU 01-27 07:50 → MED 01-27 20:49
PROVIDERS: ADMIT Nurse Practitioner Acute Care; ATTEND Nurse Practitioner Acute Care
DX: T43.592A Poisoning by other antipsychotics and neuroleptics, intentional self-harm, initial encounter (principal); E44.1 Mild protein-calorie malnutrition; H33.21 Serous retinal detachment, right eye; F25.0 Schizoaffective disorder, bipolar type; E87.6 Hypokalemia; Z20.822 Contact with and (suspected) exposure to COVID-19; Y92.009 Unspecified place in unspecified non-institutional (private) residence as the place of occurrence of the external cause; Z91.51 Personal history of suicidal behavior; D64.9 Anemia, unspecified; F15.10 Other stimulant abuse, uncomplicated; Z79.899 Other long term (current) drug therapy
CPT/HCPCS: 36415; 80048-TC; 80076-TC; 81001; 83735-TC; 84100-TC; 84484-TC; 84703-TC; 85025-TC; 87081-TC; C9803; G0378; G0480; J2060; J2270; J2405; J3480; J7030

== ENCOUNTER 2022-03-17 07:03 | Emergency (ER) | payer OTHER ==
[~2022-03-17] VITALS: Ht 167.6 cm; Wt 72.6 kg
[~2022-03-17 07:03] MED LIST: ARIP5TAB10 PO; BUPR-319 PO; FLUO40CA49 PO; OMEP20TA5 PO; ZIPR80CA2 PO
--- NOTE | 2022-03-17 08:41 | NUR ---
Security Requested for wanding. Pt cooperative and compliant. Made aware of plan of care
[2022-03-17 08:54] LABS: BASOPHILS # (AUTO) 0.1 K/uL (0.0-0.2); BASOPHILS % (AUTO) 0.5 % (0.0-2.0); EOSINOPHILS % (AUTO) 0.4 % (0.0-6.0); HEMATOCRIT 37 % (33-45); HEMOGLOBIN 11.6 g/dL (11.5-14.8); LYMPHOCYTES # (AUTO) 2.8 K/uL (0.8-4.8); LYMPHOCYTES % (AUTO) 18.4 % (20.0-44.0); MEAN CORPUSCULAR HGB CONC 32 g/dl (31.0-36.0); MEAN CORPUSCULAR VOLUME 80 fL (82-100); MONOCYTES # (AUTO) 1.4 K/uL (0.1-1.30); NEUTROPHILS # (AUTO) 10.9 K/uL (1.8-8.9); NEUTROPHILS % (AUTO) 71.7 % (43.0-81.0); PLATELET COUNT (AUTO) 478 K/uL (150-450); RED BLOOD CELL COUNT(AUTO) 4.59 MIL/uL (4.0-5.2); WHITE BLOOD COUNT (AUTO) 15.3 K/uL (4.3-11.0)
[2022-03-17 09:19] LABS: CALCIUM, SERUM 10.1 mg/dL (8.5-10.1); CARBON DIOXIDE 29 mmol/L (21-32); CHLORIDE 103 mmol/L (98-107); CREATININE 1.3 mg/dL (0.6-1.3); GLUCOSE 98 mg/dL (74-106); POTASSIUM 4.1 mmol/L (3.5-5.1); SODIUM SERUM 140 mmol/L (136-145); UREA NITROGEN, BLOOD 21 mg/dL (7-18)
[2022-03-17 09:32] LABS: ALANINE AMINOTRANSFERASE 22 U/L (12-78); ALBUMIN 4.2 g/dL (3.4-5.0); ALCOHOL, BLOOD < 3 mg/dL (0-0); ALKALINE PHOSPHATASE 96 U/L (46-116); ASPARTATE AMINOTRANSFERASE 20 U/L (15-37); BILIRUBIN,DIRECT 0.2 mg/dL (0.0-0.2); BILIRUBIN,TOTAL 0.7 mg/dL (0.2-1.0); TOTAL PROTEIN, SERUM 8.4 g/dL (6.4-8.2)
[2022-03-17 09:36] LABS: ACETAMINOPHEN < 10 ug/ml (10-30)
--- NOTE | 2022-03-17 11:33 | NUR ---
Lunch given. Ate 100%. Updated with Plan of care- Nasal swab sent to lab
[2022-03-17 11:35] LABS: BILIRUBIN,URINE NEGATIVE (NEGATIVE); COLOR,URINE YELLOW (YELLOW); LEUKOCYTE ESTERASE ,URINE TRACE (NEGATIVE); NITRITE, URINE NEGATIVE (NEGATIVE); PROTEIN,URINE TRACE mg/dl (NEGATIVE); UGLUCOSE NEGATIVE (NEGATIVE); UROBILINOGEN,URINE 0.2 EU/dL (0.2)
[2022-03-17 12:06] LABS: BACTERIA,URINE Few /HPF (None Seen); CALCIUM OXALATE CRYSTALS,UR Few /HPF (None Seen); RBC,URINE 0-2 /HPF (0-2)
--- NOTE | 2022-03-17 14:30 | NUR ---
Await Placement to psych Facility. Cooperative NO obvious distress. Status quo Vitals routine
--- NOTE | 2022-03-17 15:30 | NUR ---
FAXED [facility] FACE SHEET AND CLINICALS FOR VOLUNTARY ADMISSION
--- NOTE | 2022-03-17 16:21 | NUR ---
FOLLOWED UP WITH [facility] AND FAX IS RECEIVED
[2022-03-17] MEDS ORDERED: CEFTRIAXONE 1 G in IV D5W 50 ML IV ONE (17:30)
[2022-03-17] MEDS ORDERED: CEFTRIAXONE 1 G VIAL ONE (17:43)
[2022-03-17] MEDS ORDERED: LIDOCAINE 1% INJ 50 ML MDV IJ ONE (17:43)
[2022-03-17] MEDS ORDERED: CEFTRIAXONE 1 G VIAL IM ONE (18:00)
--- NOTE | 2022-03-17 19:28 | NUR ---
PT PROVIDED WITH WARM BLANKET FOR COMFORT.
[2022-03-17] MEDS ORDERED: CEPH500C2 PO (20:45)
[2022-03-17 22:00] VITALS: BP 129/74
[2022-03-18] MEDS ORDERED: IPRATROPIUM NEB FS 0.5 MG/2.5 ML AMPUL.NEB NEB ONE (02:00)
[2022-03-18] MEDS ORDERED: ALBUTEROL FS 2.5 MG/3 ML VIAL.NEB NEB ONE (02:00)
[2022-03-18] MEDS ORDERED: IPRATROPIUM NEB FS 0.5 MG/2.5 ML AMPUL.NEB ONE (02:20)
[2022-03-18] MEDS ORDERED: ALBUTEROL FS 2.5 MG/3 ML VIAL.NEB ONE (02:20)
--- NOTE | 2022-03-18 06:30 | NUR ---
PATIENT NO LONGER SI, DOES NOT WANT TO CONTINUE TRETMENT
[2022-03-18] MEDS ORDERED: OLANZAPINE 5 MG TABLET ONE (06:50)
[2022-03-18] MEDS ORDERED: OLANZAPINE 5 MG TABLET PO ONE (07:00)
--- NOTE | 2022-03-18 07:01 | NUR ---
Patient discharged to home in stable condition. Written and verbal after care instructions given. Patient verbalizes understanding of instruction.
== END 2022-03-18 07:02 | disposition home or self-care (01) ==
LOC: ER 07:08
DX: R45.851 Suicidal ideations (principal); F15.10 Other stimulant abuse, uncomplicated; F25.9 Schizoaffective disorder, unspecified; Z86.69 Personal history of other diseases of the nervous system and sense organs; Z79.899 Other long term (current) drug therapy; D72.829 Elevated white blood cell count, unspecified; R05.9 Cough, unspecified; R82.71 Bacteriuria; Z20.822 Contact with and (suspected) exposure to COVID-19
CPT/HCPCS: 99284; 96372; 71045; 85025; 80048; 80076; 81001; 36415; 87426; 80143; 80320; 80307; 94640; J3490; J0696; C9803; G0480; J7060

== ENCOUNTER 2022-04-05 00:34 | Emergency (ER) | payer OTHER ==
[~2022-04-05] VITALS: Ht 172.7 cm; Wt 90.7 kg
[~2022-04-05 00:34] MED LIST changes: +CEPH500C2 PO
--- NOTE | 2022-04-05 01:37 | NUR ---
BIBS C/O SI WITH PLAN TO OD. -HI -HALLUCINATIONS. REQUESTING MEDICAL CLEARANCE FOR VOLUNTARY PSYCH ADMISSION. PT AWAKE AND ALERT X4 AMBULATORY WITH STEADY GAIT. CHANGED INTO GOWN AND BELONGINGS PLACED IN LOCKERS. WANDED BY SECURITY. SAFETY MEASURES IN PLACE
--- NOTE | 2022-04-05 01:45 | NUR ---
SHUN SENT TO LAB
--- NOTE | 2022-04-05 01:45 | NUR ---
URINE COLLECTED AND SENT TO LAB
--- NOTE | 2022-04-05 01:47 | NUR ---
LAB AT BEDSIDE
[2022-04-05 02:03] LABS: BASOPHILS # (AUTO) 0.1 K/uL (0.0-0.2); BASOPHILS % (AUTO) 0.6 % (0.0-2.0); EOSINOPHILS % (AUTO) 3.9 % (0.0-6.0); HEMATOCRIT 33 % (33-45); HEMOGLOBIN 10.8 g/dL (11.5-14.8); LYMPHOCYTES # (AUTO) 2.3 K/uL (0.8-4.8); MEAN CORPUSCULAR HGB CONC 33 g/dl (31.0-36.0); MEAN CORPUSCULAR VOLUME 81 fL (82-100); MONOCYTES # (AUTO) 0.9 K/uL (0.1-1.30); MONOCYTES % (AUTO) 8.9 % (2.0-12.0); NEUTROPHILS # (AUTO) 6.1 K/uL (1.8-8.9); NEUTROPHILS % (AUTO) 62.6 % (43.0-81.0); PLATELET COUNT (AUTO) 328 K/uL (150-450); RED BLOOD CELL COUNT(AUTO) 4.09 MIL/uL (4.0-5.2); WHITE BLOOD COUNT (AUTO) 9.8 K/uL (4.3-11.0)
[2022-04-05 02:24] LABS: CALCIUM, SERUM 8.8 mg/dL (8.5-10.1); CARBON DIOXIDE 29 mmol/L (21-32); CHLORIDE 103 mmol/L (98-107); CREATININE 0.9 mg/dL (0.6-1.3); GLUCOSE 101 mg/dL (74-106); SODIUM SERUM 137 mmol/L (136-145); UREA NITROGEN, BLOOD 14 mg/dL (7-18)
[2022-04-05 02:25] LABS: BILIRUBIN,URINE NEGATIVE (NEGATIVE); COLOR,URINE YELLOW (YELLOW); LEUKOCYTE ESTERASE ,URINE NEGATIVE (NEGATIVE); NITRITE, URINE NEGATIVE (NEGATIVE); PROTEIN,URINE NEGATIVE (NEGATIVE); UGLUCOSE NEGATIVE (NEGATIVE); UROBILINOGEN,URINE 0.2 EU/dL (0.2)
[2022-04-05 02:30] LABS: ALANINE AMINOTRANSFERASE 29 U/L (12-78); ALBUMIN 3.6 g/dL (3.4-5.0); ALCOHOL, BLOOD < 3 mg/dL (0-0); ALKALINE PHOSPHATASE 99 U/L (46-116); ASPARTATE AMINOTRANSFERASE 19 U/L (15-37); BILIRUBIN,DIRECT 0.1 mg/dL (0.0-0.2); BILIRUBIN,TOTAL 0.3 mg/dL (0.2-1.0); TOTAL PROTEIN, SERUM 7.2 g/dL (6.4-8.2)
[2022-04-05 02:34] LABS: ACETAMINOPHEN 0 ug/ml (10-30)
--- NOTE | 2022-04-05 04:14 | NUR ---
clinicals faxed to [facility]
--- NOTE | 2022-04-05 08:00 | NUR ---
AAO, Appropriate/responsive GCS-15. OOB-BRP voiding freely. Breakfast given- tolerated well
[2022-04-05 08:46] LABS: BACTERIA,URINE None seen /HPF (None Seen); SQUAMOUS EPITHELIAL CELL,UR Few /HPF (None Seen); WBC,URINE 0-2 /HPF (0-3)
--- NOTE | 2022-04-05 08:58 | NUR ---
RAINE called [facility] TEL:[phone] fax:[phone] for update regarding placement at [facility] [[facility] [place] [address] FAX:[phone]].Per blanca from intake, clinicals are pending review.
--- NOTE | 2022-04-05 11:00 | NUR ---
Pt states "I had argument with family at home and was just talking crazy. Im fine now. I want to go home" Dr spence notified
--- NOTE | 2022-04-05 11:41 | NUR ---
Patient discharged to home in stable condition. Written and verbal after care instructions given. Patient verbalizes understanding of instruction.
--- NOTE | 2022-04-05 11:42 | NUR ---
DINESESE SI/HI
[2022-04-05 11:43] VITALS: BP 155/86
== END 2022-04-05 11:53 | disposition home or self-care (01) ==
LOC: ER 00:36
DX: R45.851 Suicidal ideations (principal); F15.10 Other stimulant abuse, uncomplicated; Z20.822 Contact with and (suspected) exposure to COVID-19; F25.9 Schizoaffective disorder, unspecified; Z79.899 Other long term (current) drug therapy
CPT/HCPCS: 99285; 85025; 80048; 80076; 81001; 36415; 87426; 80143; 80320; 80307; C9803; G0480

== ENCOUNTER 2022-04-13 00:27 | Emergency (ER) | payer OTHER ==
[~2022-04-13] VITALS: Ht 172.7 cm; Wt 86.6 kg
--- NOTE | 2022-04-13 01:17 | NUR ---
BIBSELF C/O SI WITH PLAN TO OD ON PILLS -HI. PT AWAKE AND ALERT X4 AMBULATES WITH STEADY GAIT BREATHING UNLABORED. CHANGED INTO GOWN AND BELONGINGS COLLECTED. WANDED BY SECURITY. SITTER AT BEDSIDE AND SAFETY MEASURES IN PLACE.
--- NOTE | 2022-04-13 01:19 | NUR ---
URINE SENT TO LAB
--- NOTE | 2022-04-13 01:20 | NUR ---
SHUN SENT TO LAB
[2022-04-13 01:39] LABS: BASOPHILS % (AUTO) 0.5 % (0.0-2.0); EOSINOPHILS % (AUTO) 1.2 % (0.0-6.0); HEMATOCRIT 34 % (33-45); HEMOGLOBIN 10.9 g/dL (11.5-14.8); LYMPHOCYTES # (AUTO) 2.2 K/uL (0.8-4.8); LYMPHOCYTES % (AUTO) 29.6 % (20.0-44.0); MEAN CORPUSCULAR HGB CONC 32 g/dl (31.0-36.0); MEAN CORPUSCULAR VOLUME 81 fL (82-100); MONOCYTES # (AUTO) 0.6 K/uL (0.1-1.30); MONOCYTES % (AUTO) 8.6 % (2.0-12.0); NEUTROPHILS # (AUTO) 4.5 K/uL (1.8-8.9); NEUTROPHILS % (AUTO) 60.1 % (43.0-81.0); PLATELET COUNT (AUTO) 321 K/uL (150-450); RED BLOOD CELL COUNT(AUTO) 4.24 MIL/uL (4.0-5.2); WHITE BLOOD COUNT (AUTO) 7.5 K/uL (4.3-11.0)
[2022-04-13 01:47] LABS: CALCIUM, SERUM 8.7 mg/dL (8.5-10.1); CARBON DIOXIDE 23 mmol/L (21-32); CHLORIDE 103 mmol/L (98-107); CREATININE 0.8 mg/dL (0.6-1.3); GLUCOSE 142 mg/dL (74-106); POTASSIUM 3.6 mmol/L (3.5-5.1); SODIUM SERUM 137 mmol/L (136-145); UREA NITROGEN, BLOOD 15 mg/dL (7-18)
[2022-04-13 01:50] LABS: BILIRUBIN,URINE NEGATIVE (NEGATIVE); COLOR,URINE YELLOW (YELLOW); LEUKOCYTE ESTERASE ,URINE NEGATIVE (NEGATIVE); NITRITE, URINE NEGATIVE (NEGATIVE); PROTEIN,URINE NEGATIVE (NEGATIVE); UGLUCOSE NEGATIVE (NEGATIVE); UROBILINOGEN,URINE 0.2 EU/dL (0.2)
[2022-04-13 01:52] LABS: ALANINE AMINOTRANSFERASE 30 U/L (12-78); ALBUMIN 3.9 g/dL (3.4-5.0); ALCOHOL, BLOOD < 3 mg/dL (0-0); ALKALINE PHOSPHATASE 100 U/L (46-116); ASPARTATE AMINOTRANSFERASE 19 U/L (15-37); BILIRUBIN,DIRECT 0.1 mg/dL (0.0-0.2); BILIRUBIN,TOTAL 0.2 mg/dL (0.2-1.0); TOTAL PROTEIN, SERUM 7.6 g/dL (6.4-8.2)
[2022-04-13 02:03] LABS: ACETAMINOPHEN < 10 ug/ml (10-30)
[2022-04-13 02:11] LABS: BACTERIA,URINE None seen /HPF (None Seen); RBC,URINE 0-2 /HPF (0-2); WBC,URINE 0-2 /HPF (0-3)
[2022-04-13 02:12] LABS: SQUAMOUS EPITHELIAL CELL,UR Few /HPF (None Seen)
--- NOTE | 2022-04-13 03:43 | NUR ---
FACESHEET AND CLINICALS FAXED TO [facility].
--- NOTE | 2022-04-13 04:40 | NUR ---
ACCEPTED AT [facility] UNDER DR FLORES FOR REPORT PICKUP AFTER 0800
--- NOTE | 2022-04-13 04:45 | NUR ---
[facility] CALLED FOR BLS GOING TO [facility] CALL SETUP FOR @[phone]
--- NOTE | 2022-04-13 07:15 | NUR ---
Received pt from [facility] a[facility] asleepy respiratin spont and easy
--- NOTE | 2022-04-13 08:41 | NUR ---
PT REFUSED TO GO TO [facility], RESOURCES PROVIDED TO HER FOR OUTPATIENT TREATMENT, BELONGING GIVEN BACK TO PT. PT DISCHARGED IN STABLE CONDITION.
[2022-04-13 08:48] VITALS: BP 128/55
== END 2022-04-13 08:48 | disposition home or self-care (01) ==
LOC: ER 00:28
DX: R45.851 Suicidal ideations (principal); F15.10 Other stimulant abuse, uncomplicated; Z59.01 Sheltered homelessness; Z20.822 Contact with and (suspected) exposure to COVID-19; F19.90 Other psychoactive substance use, unspecified, uncomplicated; F25.9 Schizoaffective disorder, unspecified; Z79.899 Other long term (current) drug therapy
CPT/HCPCS: 99285; 85025; 80048; 80076; 84703; 81001; 36415; 87426; 80143; 80320; 80307; C9803; G0480